=== PATIENT | male | born 2005 ===

== ENCOUNTER 2024-09-23 06:49 | Outpatient (REF) | payer OTHER, SELFPAY ==
--- NOTE | ~2024-09-23 | US_ITS ---
CLINICAL HISTORY: UNSPECIFIED ABD PAIN US abdomen complete Comparison: None provided Findings: The visualized pancreas is normal. The aorta and inferior vena cava are normal caliber. Liver measures 13.4 cm in length. There is no intrahepatic bile duct dilatation. Common bile duct is normal in caliber measuring 0.2 cm. The gallbladder is normal. There is no sonographic Lopez sign. The main portal vein is antegrade. Right kidney is 10.4 cm in length. Left kidney is 10.1 cm in length. Spleen is 9.2 cm in length. No ascites. IMPRESSION: 1. Normal complete abdominal ultrasound. This document has been electronically signed by: Tima Rogers DO on 09/24/2024 11:13:59
== END 2024-09-23 06:50 | disposition home or self-care (01) ==
LOC: HO.UMASIMG 06:49
PROVIDERS: Visit Provider Nurse Practitioner Family
DX: R10.9 Unspecified abdominal pain (principal); R53.1 Weakness
CPT/HCPCS: 76700

== ENCOUNTER → 2024-09-23 10:30 | Outpatient (BNV) | payer OTHER, SELFPAY | PROVIDERS: Visit Provider Family Medicine | DX: R10.9 Unspecified abdominal pain (principal) | CPT/HCPCS: 76700 ==